=== PATIENT | female | born 1980 | race Caucasian/White ===

== ENCOUNTER 2017-07-25 20:17 | Emergency (ER) | payer SELFPAY ==
[~2017-07-25] VITALS: Ht 152.4 cm; Wt 88.0 kg
[~2017-07-25 20:17] MED LIST: DICY10 PO; PROT40TA PO; ZOFR4SOL PO
[2017-07-25 20:18] VITALS: BP 161/94; PULSE 116; RESP 16; TEMP 99.3; O2SAT 96
--- NOTE | 2017-07-25 21:08 | PD ---
HPI Chief Complaint: Flank/Kidney Pain Time Seen by Provider: 21:04 Travel History International Travel<30 days: No Contact w/Intl Traveler<30days: No Traveled to known affect area: No History of Present Illness HPI Patient is a 36 year old female presenting to emergency Department for evaluation of right back, flank pain, hematuria. Patient states her symptoms started yesterday, they're accompanied by nausea, no vomiting. She denies any fever or chills. She states her pain is an 8 out of 10 and states it's shooting and throbbing. Patient reports a history of kidney stones, she states her symptoms today are similar with what she's had in the past. She states her pain has gotten worse over the last 24 hours since it initiated. She denies any other significant past medical history. She reports an allergy to morphine which causes hives. PFSH Past Medical History Diminished Hearing: No GERD: Yes Kidney Stones: Yes Immunizations Current: Yes ?: Not : 2 Para: 2 Past Surgical History Cholecystectomy: Yes Hysterectomy: Yes Social History Alcohol Use: No Tobacco Use: No Substance Use: No Allergies-Medications (Allergen,Severity, Reaction): Coded Allergies: lorazepam (Verified Allergy, Severe, Psychosis, 07/25/17) ketorolac (Verified Allergy, Unknown, HIVES, 07/25/17) prochlorperazine (Verified Allergy, Unknown, HIVES, 07/25/17) morphine (Verified Adverse Reaction, Severe, Hives, 07/25/17) Reported Meds & Prescriptions Reported Meds & Active Scripts Active No Active Prescriptions or Reported Medications Review of Systems Except as stated in HPI: all other systems reviewed are Neg General / Constitutional: No: Fever, Chills Cardiovascular: No: Chest Pain or Discomfort Respiratory: No: Shortness of Breath Gastrointestinal: Positive: Nausea Genitourinary: Positive: Hematuria, Pelvic Pain, Flank Pain Physical Exam Narrative GENERAL: Well-developed, well-nourished, alert female. Resting comfortably, patient does not appear to be in any acute distress. SKIN: Warm and dry. HEAD: Atraumatic. Normocephalic. EYES: Pupils equal and round. No scleral icterus. No injection or drainage. ENT: No nasal bleeding or discharge. Mucous membranes pink and moist. NECK: Trachea midline. No JVD. CARDIOVASCULAR: Regular rate and rhythm. RESPIRATORY: No accessory muscle use. Clear to auscultation. Breath sounds equal bilaterally. GASTROINTESTINAL: Abdomen soft, non-tender, nondistended. Hepatic and splenic margins not palpable. Positive CVAT on the right. MUSCULOSKELETAL: Extremities without clubbing, cyanosis, or edema. No obvious deformities. NEUROLOGICAL: Awake and alert. No obvious cranial nerve deficits. Motor grossly within normal limits. Five out of 5 muscle strength in the arms and legs. Normal speech. PSYCHIATRIC: Appropriate mood and affect; insight and judgment normal. Data Data Last Documented VS Vital Signs Date Time Temp Pulse Resp B/P (MAP) Pulse Ox O2 Delivery O2 Flow Rate FiO2 07/25/17 22:13 20 07/25/17 20:18 99.3 116 161/94 (116) 96 Room Air Orders Orders Urinalysis - C+S If Indicated (07/25/17 20:50) Ed Urine Pregnancytest Poc (07/25/17 20:50) Complete Blood Count With Diff (07/25/17 20:50) Comprehensive Metabolic Panel (07/25/17 20:50) Iv Access Insert/Monitor (07/25/17 20:50) Ct Abd/Pel W/O Iv Contrast (07/25/17 ) Hydromorphone Pf Inj (Dilaudid Pf Inj) (07/25/17 21:15) Ondansetron Inj (Zofran Inj) (07/25/17 21:15) Sodium Chlor 0.9% 1000 Ml Inj (Ns 1000 M (07/25/17 21:30) Diphenhydramine Inj (Benadryl Inj) (07/25/17 22:00) Urine Culture (07/25/17 21:40) Labs Laboratory Tests Test 07/25/17 21:00 07/25/17 21:40 White Blood Count 9.9 TH/MM3 Red Blood Count 4.67 MIL/MM3 Hemoglobin 11.1 GM/DL Hematocrit 35.0 % Mean Corpuscular Volume 75.0 FL Mean Corpuscular Hemoglobin 23.8 PG Mean Corpuscular Hemoglobin Concent 31.8 % Red Cell Distribution Width 14.9 % Platelet Count 316 TH/MM3 Mean Platelet Volume 8.2 FL Neutrophils (%) (Auto) 78.7 % Lymphocytes (%) (Auto) 14.0 % Monocytes (%) (Auto) 5.3 % Eosinophils (%) (Auto) 1.3 % Basophils (%) (Auto) 0.7 % Neutrophils # (Auto) 7.8 TH/MM3 Lymphocytes # (Auto) 1.4 TH/MM3 Monocytes # (Auto) 0.5 TH/MM3 Eosinophils # (Auto) 0.1 TH/MM3 Basophils # (Auto) 0.1 TH/MM3 CBC Comment DIFF FINAL Differential Comment Blood Urea Nitrogen 12 MG/DL Creatinine 0.95 MG/DL Random Glucose 353 MG/DL Total Protein 8.4 GM/DL Albumin 3.6 GM/DL Calcium Level 9.3 MG/DL Alkaline Phosphatase 101 U/L Aspartate Amino Transf (AST/SGOT) 27 U/L Alanine Aminotransferase (ALT/SGPT) 32 U/L Total Bilirubin 0.3 MG/DL Sodium Level 131 MEQ/L Potassium Level 4.1 MEQ/L Chloride Level 98 MEQ/L Carbon Dioxide Level 23.2 MEQ/L Anion Gap 10 MEQ/L Estimat Glomerular Filtration Rate 67 ML/MIN Urine Color YELLOW Urine Turbidity HAZY Urine pH 5.5 Urine Specific [place] 1.035 Urine Protein 30 mg/dL Urine Glucose (UA) 1000 mg/dL Urine Ketones TRACE mg/dL Urine Occult Blood MOD Urine Nitrite NEG Urine Bilirubin NEG Urine Urobilinogen LESS THAN 2.0 MG/DL Urine Leukocyte Esterase SMALL Urine RBC 87 /hpf Urine WBC 2 /hpf Urine Squamous Epithelial Cells 6 /hpf Urine Bacteria MOD /hpf Microscopic Urinalysis Comment CULTURE INDICATED MDM Medical Decision Making Medical Screen Exam Complete: Yes Emergency Medical Condition: Yes Interpretation(s) Laboratory Tests Test 07/25/17 21:00 07/25/17 21:40 White Blood Count 9.9 TH/MM3 Red Blood Count 4.67 MIL/MM3 Hemoglobin 11.1 GM/DL Hematocrit 35.0 % Mean Corpuscular Volume 75.0 FL Mean Corpuscular Hemoglobin 23.8 PG Mean Corpuscular Hemoglobin Concent 31.8 % Red Cell Distribution Width 14.9 % Platelet Count 316 TH/MM3 Mean Platelet Volume 8.2 FL Neutrophils (%) (Auto) 78.7 % Lymphocytes (%) (Auto) 14.0 % Monocytes (%) (Auto) 5.3 % Eosinophils (%) (Auto) 1.3 % Basophils (%) (Auto) 0.7 % Neutrophils # (Auto) 7.8 TH/MM3 Lymphocytes # (Auto) 1.4 TH/MM3 Monocytes # (Auto) 0.5 TH/MM3 Eosinophils # (Auto) 0.1 TH/MM3 Basophils # (Auto) 0.1 TH/MM3 CBC Comment DIFF FINAL Differential Comment Blood Urea Nitrogen 12 MG/DL Creatinine 0.95 MG/DL Random Glucose 353 MG/DL Total Protein 8.4 GM/DL Albumin 3.6 GM/DL Calcium Level 9.3 MG/DL Alkaline Phosphatase 101 U/L Aspartate Amino Transf (AST/SGOT) 27 U/L Alanine Aminotransferase (ALT/SGPT) 32 U/L Total Bilirubin 0.3 MG/DL Sodium Level 131 MEQ/L Potassium Level 4.1 MEQ/L Chloride Level 98 MEQ/L Carbon Dioxide Level 23.2 MEQ/L Anion Gap 10 MEQ/L Estimat Glomerular Filtration Rate 67 ML/MIN Urine Color YELLOW Urine Turbidity HAZY Urine pH 5.5 Urine Specific [place] 1.035 Urine Protein 30 mg/dL Urine Glucose (UA) 1000 mg/dL Urine Ketones TRACE mg/dL Urine Occult Blood MOD Urine Nitrite NEG Urine Bilirubin NEG Urine Urobilinogen LESS THAN 2.0 MG/DL Urine Leukocyte Esterase SMALL Urine RBC 87 /hpf Urine WBC 2 /hpf Urine Squamous Epithelial Cells 6 /hpf Urine Bacteria MOD /hpf Microscopic Urinalysis Comment CULTURE INDICATED Last Impressions Abdomen/Pelvis CT 07/25/17 0000 Signed Impressions: Service Date/Time: Tuesday, July 25, 2017 21:30 - CONCLUSION: 1. Numerous small nonobstructing bilateral renal calculi measuring 1-2 mm. No hydronephrosis. No bladder or ureteral calculi. Small hiatal hernia. Rober Guo MD Vital Signs Date Time Temp Pulse Resp B/P (MAP) Pulse Ox O2 Delivery O2 Flow Rate FiO2 07/25/17 20:49 20 07/25/17 20:18 99.3 116 16 161/94 (116) 96 Room Air Differential Diagnosis Kidney stone versus pyelonephritis versus urinary tract infection versus metabolic abnormality versus other Narrative Course Patient presented for evaluation of hematuria and flank pain. Symptoms are consistent with previous kidney stones. Labs and imaging ordered and pending. Pain medication and antiemetic ordered. Vital signs are stable and she is resting comfortably. Ct of the abd/pelvis read by radiologist shows numerous 1-2mm non obstructing stones. CBC and Chem reviewed and are unremarkable. Pt is requesting additional dilaudid, first dose was given approx 40 minutes ago. Cameron was offered oral pain medication and refused, then stated she would just go. She was encouraged to stay to wait for the UA results, she then requested benadryl. 25mg IV benadryl x 1 dose ordered. Labs reviewed, no acute abdomen on is identified. Urinalysis is consistent with urinary tract infection. Patient will be started on nitrofurantoin. She will be given first dose now. She is encouraged to complete full course of antibiotics as prescribed, increase fluid intake. She is encourage return to emergency department for any new or worsening symptoms, she was further encouraged to follow-up with her primary care doctor. Patient verbalized understanding of instructions. Patient is stable for discharge. Diagnosis Primary Impression: UTI (urinary tract infection) Qualified Codes: N10 - Acute pyelonephritis Referrals: Primary Care Physician Patient Instructions: General Instructions, Kidney Infection (ED) Additional Instructions: Increased fluid intake Complete full course of antibiotics as prescribed Follow-up with her primary doctor Return to emergency department for any new or worsening symptoms Med/Other Pt SpecificInfo: Prescription(s) given Scripts Phenazopyridine (Pyridium) 100 Mg Tab 100 MG PO Q8H Y for DYSURIA for 3 Days, #9 TAB 0 Refills Prov: Mary Mistry 07/25/17 Ciprofloxacin (Cipro) 500 Mg Tab 500 MG PO BID for Infection for 7 Days, #14 TAB 0 Refills Prov: Mary Mistry 07/25/17 Disposition: 01 DISCHARGE HOME Condition: Stable Mary Mistry Jul 25, 2017 21:08
[2017-07-25] MEDS ORDERED: HYDROmorphone HCL PF 0.5 MG/0.5 ML SYRINGE IV PUSH ONE (21:15)
[2017-07-25] MEDS ORDERED: ONDANSETRON HCL 4 MG/2 ML VIAL IV PUSH ONE (21:15)
[2017-07-25 21:17] LABS: AUTOMATED NEUTROPHIL # 7.8 TH/MM3 (1.8-7.7); BASOPHIL # 0.1 TH/MM3 (0-0.2); BASOPHIL % 0.7 % (0.0-2.0); EOSINOPHIL # 0.1 TH/MM3 (0-0.4); EOSINOPHIL % 1.3 % (0.0-4.0); HEMOGLOBIN 11.1 GM/DL (11.6-15.3); LYMPHOCYTE # 1.4 TH/MM3 (1.0-4.8); MEAN CORPUSCULAR HEMOGLOBIN 23.8 PG (27.0-34.0); MEAN CORPUSCULAR HGB CONC 31.8 % (32.0-36.0); MEAN PLATELET VOLUME 8.2 FL (7.0-11.0); MONO % 5.3 % (0.0-8.0); MONOCYTE # 0.5 TH/MM3 (0-0.9); NEUT % 78.7 % (16.0-70.0); PLATELET COUNT 316 TH/MM3 (150-450); RED BLOOD COUNT 4.67 MIL/MM3 (4.00-5.30); RED CELL DISTRIBUTION WIDTH 14.9 % (11.6-17.2); WHITE BLOOD COUNT 9.9 TH/MM3 (4.0-11.0)
[2017-07-25] MEDS ORDERED: SODIUM CHLOR 0.9% 1000 ML INJ 1,000 ML IV ONE (21:30)
[2017-07-25 21:38] LABS: ALBUMIN 3.6 GM/DL (3.4-5.0); AST (GOT) 27 U/L (15-37); BICARBONATE 23.2 MEQ/L (21.0-32.0); BLOOD UREA NITROGEN 12 MG/DL (7-18); CALCIUM 9.3 MG/DL (8.5-10.1); CHLORIDE 98 MEQ/L (98-107); CREATININE 0.95 MG/DL (0.50-1.00); GLOMERULAR FILTRATION RATE 67 ML/MIN (>89); GLUCOSE,RANDOM 353 MG/DL (74-106); SODIUM (NA) 131 MEQ/L (136-145)
[2017-07-25 21:40] LABS: ALT (GPT) 32 U/L (10-53)
[2017-07-25 21:41] LABS: ALKALINE PHOSPHATASE 101 U/L (45-117); TOTAL BILIRUBIN ADULT 0.3 MG/DL (0.2-1.0); TOTAL PROTEIN 8.4 GM/DL (6.4-8.2)
--- NOTE | 2017-07-25 21:50 | RADRPT ---
EXAM DATE/TIME: 07/25/2017 21:30 [facility] COMPARISON: CT ABDOMEN & PELVIS W/O CONTRAST, March 05, 2015, 2:50. INDICATIONS : Right flank pain. ORAL CONTRAST: No oral contrast ingested. RADIATION DOSE: 12.73 CTDIvol (mGy) MEDICAL HISTORY : None SURGICAL HISTORY : Cholecystectomy. Hysterectomy. ENCOUNTER: Initial ACUITY: 1 day PAIN SCALE: 3/10 LOCATION: Right flank TECHNIQUE: Volumetric scanning of the abdomen and pelvis was performed. Using automated exposure control and ad justment of the mA and/or kV according to patient size, radiation dose was kept as low as reasonably achievable to obtain optimal diagnostic quality images. DICOM format image data is available electro nically for review and comparison. FINDINGS: Lung bases are clear. No acute findings in the liver, spleen, adrenals or pancreas. Numerous 1-2 mm n onobstructing calculi are present upper and lower poles of both kidneys. No ureteral calculi or evide nce for obstructive uropathy. No hydronephrosis. No bladder calculi. No pelvic masses or free fluid. No acute bony abnormalities. CONCLUSION: 1. Numerous small nonobstructing bilateral renal calculi measuring 1-2 mm. No hydronephrosis. No blad rubén or ureteral calculi. Small hiatal hernia. Rober Guo MD on July 25, 2017 at 21:44 Board Certified Radiologist. This report was verified electronically.
[2017-07-25] MEDS ORDERED: diphenhydrAMINE HCL 50 MG/ML VIAL IV PUSH ONE (22:00)
[2017-07-25 22:13] VITALS: RESP 20
[2017-07-25 22:36] LABS: BACTERIA, URINE MOD /hpf; BILIRUBIN, URINE NEG (NEG); BLOOD, URINE MOD (NEG); GLUCOSE,URINE 1000 mg/dL (NEG); KETONE, URINE TRACE mg/dL (NEG); NITRITE,URINE NEG (NEG); PH, URINE 5.5 (5.0-8.5); SQUAMOUS EPITHELIAL CELL URINE 6 /hpf (0-5); URINE COLOR YELLOW (YELLW/STRAW); URINE LEUKOCYTE ESTERASE SMALL (NEG)
[2017-07-25] MEDS ORDERED: CIPR-9 PO (22:55)
[2017-07-25] MEDS ORDERED: PHEN0.4T PO (22:55)
[2017-07-25] MEDS ORDERED: CIPROFLOXACIN 500 MG TAB PO ONE (23:00)
== END 2017-07-26 02:45 | disposition home or self-care (01) ==
LOC: NEPD 20:17
DX: N10 Acute pyelonephritis (principal); N20.0 Calculus of kidney; K44.9 Diaphragmatic hernia without obstruction or gangrene
CPT/HCPCS: 74176; 80053; 81001; 84703; 85025; 87086; 96361; 96374; 96375; 99285; J1170; J1200; J2405; J7030